=== PATIENT | male | born 1965 | race Caucasian/White ===

== ENCOUNTER 2018-10-25 11:07 | Emergency (ER) | payer MEDICAID, OTHER ==
[2018-10-25 11:18] VITALS: RESP 18; TEMP 98.4; BMI 27.3
--- NOTE | 2018-10-25 11:51 | ED PDOC ---
Arrival/HPI - General Chief Complaint: Lower Extremity Problem/Injury Time Seen by Provider: 10/25/18 11:08 Historian: Patient - History of Present Illness Narrative History of Present Illness (Text): 10/25/18 11:46 53 y/o male with no significant PMH presents to the ED c/o left leg swelling and knee pain x 2 weeks. Pain is located to anterior and medial joint line of left knee, worse with walking and bearing weight. Associated swelling of the left leg from the digits to the mid thigh. States the swelling occasionally causes paresthesias to the left lower leg. No recent long immobilization, surgery, tobacco use, history of malignancy, or hormone use. Pt has been taking ibuprofen for pain with minimal relief. Pt does not follow with a primary doctor. Denies trauma/injury, weakness, skin redness/warmth, abdominal pain, back pain, nausea, vomiting, fever, or any other associated symptoms. Past Medical History - Provider Review Nursing Documentation Reviewed: Yes - Psychiatric Hx Substance Use: No Family/Social History - Physician Review Nursing Documentation Reviewed: Yes Family/Social History: No Known Family HX Smoking Status: Never Smoked Hx Alcohol Use: No Hx Substance Use: No Allergies/Home Meds Allergies/Adverse Reactions: Allergies No Known Allergies Allergy (Verified 10/25/18 11:17) Review of Systems - Review of Systems Constitutional: Normal. absent: Fevers Respiratory: Normal. absent: SOB, Cough Cardiovascular: Normal. absent: Chest Pain, Palpitations, Syncope Gastrointestinal: Normal. absent: Abdominal Pain, Nausea, Vomiting Genitourinary Male: Normal. absent: Dysuria, Frequency Musculoskeletal: Other (knee pain, left leg swelling). absent: Back Pain, Neck Pain Skin: Normal. absent: Rash, Cellulitis Neurological: Normal. absent: Headache, Dizziness Physical Exam Vital Signs Reviewed: Yes Vital Signs Temp Pulse Resp BP Pulse Ox 10/25/18 11:08 98.4 F 89 18 98 10/25/18 11:07 98.4 F 89 18 181/96 H 98 Temperature: Afebrile Blood Pressure: Hypertensive Pulse: Regular Respiratory Rate: Normal Appearance: Positive for: Well-Appearing, Non-Toxic, Comfortable Pain Distress: None Mental Status: Positive for: Alert and Oriented X 3 - Systems Exam Head: Present: Atraumatic, Normocephalic Pupils: Present: PERRL Extroacular Muscles: Present: EOMI Conjunctiva: Present: Normal Mouth: Present: Moist Mucous Membranes Neck: Present: Normal Range of Motion Respiratory/Chest: Present: Clear to Auscultation, Good Air Exchange. No: Respiratory Distress, Accessory Muscle Use Cardiovascular: Present: Regular Rate and Rhythm, Normal S1, S2, Peripheal Pulse s Present Abdomen: No: Tenderness Upper Extremity: Present: Normal Inspection, Normal ROM, NORMAL PULSES, Neurovascularly Intact, Capillary Refill < 2s. No: Temperature Abnormalties Lower Extremity: Present: NORMAL PULSES (obtained by doppler), Tenderness (anterior and over medial joint line of left knee ), Swelling (left leg from digits to mid thigh), Erythema (mild to lower anterior left leg and dorsal left foot), Temperature Abnormalties (mild increased warmth to entirety of left leg), Neurovascularly Intact, Capillary Refill < 2 s, Other (right leg normal). No: CALF TENDERNESS, Cyanosis, Normal ROM (decreased to left knee), Marcelino's Sign, Deformity Neurological: Present: GCS=15, CN II-XII Intact, Speech Normal, Normal Sensory Function, Gait Normal Skin: Present: Warm, Dry, Other (see lower extremity exam) Psychiatric: Present: Alert, Oriented x 3, Normal Insight, Normal Concentration, Normal Affect, Normal Mood Medical Decision Making ED Course and Treatment: 11:53 Initial Plan: * Left Leg Venous Duplex * Left Knee XR * Tylenol Xray negative for acute pathology, shows moderate sized joint effusion. Ultrasound shows complex cystic mass behind left knee. Negative for DVT. chemical waste management technician states differential includes abscess vs. complex bakers cyst but recommended call to Dr. Hobbs. No overlying erythema or fluctuance to popliteal fossa of left knee. Will get bloodwork and reach out to Dr. Uriel Hobbs for official read. Bloodwork shows anemia, elevated creatinine/BUN, low bicarb and chloride, and elevated glucose. No leukocytosis. Pt afebrile. Discussed results with patient. Denies dizziness, hematemesis, hematuria, hematochezia, melena. Hydralazine ordered for elevated BP Distal pulses obtained by doppler without difficulty. Recommended admission to hospital for elevated creatinine, dehydration, and further evaluation of left leg edema/warmth/redness. Pt refusing admission. Asking to leave AMA. Educated pt on the dangers of leaving the hospital including , disability, and loss of limb or life. Pt verbalized understanding. Given followup for orthopedist and clinic. Advised to return if he changes his mind or for new/worsening symptoms. Case discussed with ED attending Dr. Vizcarra who recommends discharge home with Keflex with clini c/orthopedic followup. No response from Dr. Hobbs. BP has improved with medication. AMA form signed by me, patient, and witnessed by nursing. The patient is choosing to leave against medical advice. I have personally explained to the patient that choosing to do so may result in permanent bodily harm, disability, or . I have discussed at great length that without further evaluation and monitoring there may be unforeseen circumstances and/or deterioration causing permanent bodily harm or as a result of their choice. The patient is alert, oriented, and shows the mental capacity to make clear decisions regarding the patients health care at this time. The patient continues to wish to leave against medical advice. In light of the patients decision to leave against medical advice, follow-up has been arranged and the patient is aware of the importance to following up as instructed. The patient has been advised that they should return to the emergency room immediately if they change their mind at any time, or if their condition begins to change or worsen in any way. - Lab Interpretations Lab Results: 10/25/18 13:00 10/25/18 13:00 Lab Results 10/25/18 14:40: Urine Color Light yellow, Urine Appearance Clear, Urine pH 6.0, Ur Specific [place] 1.015, Urine Protein Trace H, Urine Glucose (UA) Negative, Urine Ketones Negative, Urine Blood Small H, Urine Nitrate Negative, Urine Bilirubin Negative, Urine Urobilinogen 0.2, Ur Leukocyte Esterase Negative, Urine RBC 10 - 15 H, Urine WBC 0 - 2, Ur Epithelial Cells None, Urine Bacteria Few, Fine Granular Casts 0 - 2, Coarse Granular Casts Trace 10/25/18 13:00: Sodium 139, Potassium 4.2, Chloride 111 H, Carbon Dioxide 19 L, Anion Gap 13, BUN 22 H, Creatinine 1.6 H, Est GFR ( Amer) 55, Est GFR (Non-Af Amer) 45, Random Glucose 192 H, Calcium 8.5, Total Bilirubin 0.3, AST 23, ALT 16, Alkaline Phosphatase 85, Total Protein 7.8, Albumin 3.1, Globulin 4.8, Albumin/Globulin Ratio 0.6 L 10/25/18 13:00: PT 14.6 H, INR 1.29, APTT 32.8 10/25/18 13:00: WBC 7.5, RBC 3.75, Hgb 9.4 L, Hct 28.9 L, MCV 77.1 L, MCH 25.1, MCHC 32.5, RDW 13.2, Plt Count 429, MPV 9.5, Neut % (Auto) 83.8 H, Lymph % (Auto) 6.7 L, [place] % (Auto) 8.0 H, Eos % (Auto) 1.1 L, Baso % (Auto) 0.4, Lymph # (Auto) 0.5 L, [place] # (Auto) 0.6, Eos # (Auto) 0.1, Baso # (Auto) 0.03, Absolute Neuts (auto) 6.28 I have reviewed the lab results: Yes Interpretation: Abnormal lab values - RAD Interpretation Radiology Orders: 10/25/18 11:25 KNEE LEFT 2 VIEWS (AP & LAT) [RAD] Stat DUPLEX LOWER EXTRM VEIN LEFT [US] Stat - Medication Orders Current Medication Orders: Discontinued Medications Acetaminophen (Tylenol 325mg Tab) 975 mg PO STAT STA Stop: 10/25/18 11:26 Last Admin: 10/25/18 11:39 Dose: 975 mg MAR Pain/Vitals Document 10/25/18 11:39 EQ (Rec: 10/25/18 11:39 EQ [facility] [id number]) Pain Reassessment Is This A Pain ReAssessment? No Sleep Is patient sleeping during reassessment? No Presence of Pain Presence of Pain Yes Disposition/Present on Arrival - Present on Arrival Any Indicators Present on Arrival: No History of DVT/PE: No History of Uncontrolled Diabetes: No Urinary Catheter: No History of Decub. Ulcer: No History Surgical Site Infection Following: None - Disposition Have Diagnosis and Disposition been Completed?: No Diagnosis: Leg edema, left, Cyst of knee joint, Elevated BP without diagnosis of hype rtension, Hyperglycemia, Dehydration Disposition: AGAINST MEDICAL ADVICE Disposition Time: 13:45 Condition: GUARDED Discharge Instructions (ExitCare): High Blood Pressure in Adults, Archibald's Cyst, Swelling, Cellulitis (Skin Infection), Adult (DC), Knee Pain Additional Instructions: Keflex every 6 hours for 7 days Tylenol extra strength every 6 hours as needed for pain Increase fluids Rest, no strenuous activity Elevate left leg Followup with orthopedic doctor tomorrow for swollen leg and abnormal ultrasound Followup with clinic or primary doctor today or tomorrow for elevated BP, swollen leg, elevated creatinine, and elevated glucose Return to ER with any new/worsening symptoms or if you wish to be re-evaluated Prescriptions: Cephalexin [Keflex] 500 mg PO QID 7 Days #28 capsule Referrals: [facility] at [facility] [place] [Outside] - Follow up with primary Orthopedic Clinic at [Outside] - Follow up with primary Ena Cerda MD [Staff Provider] - Follow up with primary Jo Armando MD [Medical Doctor] - Follow up with primary Forms: [facility] (Uzbek), WORK NOTE
--- NOTE | 2018-10-25 12:38 | RAD ---
Date of service: 10/25/2018 PROCEDURE: Left Knee Radiographs. HISTORY: Pain. COMPARISON: None. TECHNIQUE: 2 views obtained. FINDINGS: BONES: Normal. No fracture. JOINTS: Normal. No osteoarthritis. JOINT EFFUSION: Moderate-sized joint effusion OTHER FINDINGS: None. IMPRESSION: Normal radiographs of the left knee.
[2018-10-25 13:18] LABS: BASO # 0.03 K/mm3 (0.0-2.0); BASO % 0.4 % (0.0-3.0); EOS # 0.1 (0.0-0.7); EOS % 1.1 % (1.5-5.0); HEMOGLOBIN 9.4 g/dL (14.0-18.0); LYMPH # 0.5 (1.2-3.4); LYMPH % 6.7 % (22.0-35.0); MEAN CELL VOLUME 77.1 fl (80.0-105.0); MEAN CORPUSCULAR HEMOGLOBIN 25.1 pg (25.0-35.0); MEAN CORPUSCULAR HGB CONC 32.5 g/dl (31.0-37.0); MEAN PLATELET VOLUME 9.5 fl (7.0-11.0); MONO # 0.6 (0.1-0.6); RBC 3.75 10^6/uL (3.5-6.1); RED CELL DISTRIBUTION WIDTH 13.2 % (11.5-14.5); WHITE BLOOD COUNT 7.5 10^3/uL (4.5-11.0)
[2018-10-25 13:28] LABS: ALB/GLOB RATIO 0.6 (1.1-1.8); ALBUMIN 3.1 g/dL (3.0-4.8); CALCIUM 8.5 mg/dL (8.4-10.5)
[2018-10-25 13:30] LABS: INR 1.29; PARTIAL THROMBOPLASTIN TIME 32.8 Seconds (26.9-38.3); PROTHROMBIN TIME 14.6 SECONDS (9.4-12.5)
[2018-10-25 14:45] VITALS: BP 142/83; PULSE 81; O2SAT 100
[2018-10-25 15:01] LABS: URINE BILIRUBIN NEGATIVE (NEGATIVE); URINE BLOOD SMALL (NEGATIVE); URINE GLUCOSE (UA) NEGATIVE (NEGATIVE); URINE LEUKOCYTE ESTERASE NEGATIVE Leu/uL (NEGATIVE); URINE PROTEIN TRACE mg/dL (<30 mg/dL); URINE UROBILINOGEN 0.2 E.U./dL (<1 E.U./dL)
[2018-10-25 15:11] LABS: URINE APPEARANCE CLEAR (CLEAR); URINE COLOR LIGHT YELLOW (YELLOW)
[2018-10-25 15:12] LABS: URINE BACTERIA FEW /hpf; URINE WBC 0 - 2 /hpf (0-6)
[2018-10-25 15:13] LABS: URINE COARSE GRANULAR CAST TRACE /hpf; URINE FINE GRANULAR CAST 0 - 2 /hpf
--- NOTE | 2018-10-25 17:04 | US ---
PROCEDURE: Left lower extremity venous US HISTORY: Leg pain and swelling. Evaluate for DVT. PHYSICIAN(S): Uriel Hobbs MD. TECHNIQUE: Duplex sonography and color-flow Doppler with graded compression were used to evaluate the deep venous system of the left lower extremity. The exam is limited by edema. FINDINGS: The visualized deep venous system of the left lower extremity is sonographically normal and compressible. Normal wave forms and augmentation are seen. There is no sonographic evidence for deep venous thrombosis in the visualized segments of the left lower extremity. There is an oblong complex fluid collection in the left popliteal fossa, consistent with a Archibald's cyst IMPRESSION: 1. No sonographic evidence for deep venous thrombosis in the visualized segments of the left lower extremity.
== END 2018-10-25 14:45 | disposition left against medical advice (07) ==
LOC: ED 11:07
DX: E86.0 Dehydration (principal); M79.89 Other specified soft tissue disorders; R03.0 Elevated blood-pressure reading, without diagnosis of hypertension; M25.862 Other specified joint disorders, left knee; R73.9 Hyperglycemia, unspecified
CPT/HCPCS: 73560; 80053; 81001; 85025; 85610; 85730; 93971; 96374; 99284; J0360